=== PATIENT | female | born 1995 | race Asian ===

== ENCOUNTER 2021-12-24 18:46 | Emergency (ER) | payer OTHER ==
[~2021-12-24] VITALS: Ht 160 cm; Wt 75.0 kg
[2021-12-24] MEDS ORDERED: ACETAMINOPHEN 325MG TABLET PO ONE (22:00)
[2021-12-24 23:42] VITALS: BP 131/87
== END 2021-12-24 23:43 | disposition home or self-care (01) ==
LOC: ER 18:46
DX: S09.8XXA Other specified injuries of head, initial encounter (principal); X58.XXXA Exposure to other specified factors, initial encounter; Y93.89 Activity, other specified; Y92.89 Other specified places as the place of occurrence of the external cause; Y99.8 Other external cause status
CPT/HCPCS: 99284